=== PATIENT | female | born 1965 | race Caucasian/White ===

== ENCOUNTER 2019-05-29 16:54 | Emergency (ER) | payer OTHER ==
[~2019-05-29] VITALS: Ht 167.6 cm; Wt 109.6 kg
[~2019-05-29 16:54] MED LIST: BEN25 PO; DOXY100T20 PO; PRED20TA PO
[2019-05-29 17:08] VITALS: BP 142/84; PULSE 91; RESP 18; Ht 167.6 cm; Wt 109.6 kg
--- NOTE | 2019-05-29 18:17 | ERD ---
ER Documentation Chief Complaint Chief Complaint itchy blisters on right hand x5 days HPI 53-year-old female presenting to the emergency department complaining of rash to her bilateral hands spreading up the bilateral upper extremities for the past 5 days after working with laundry detergent and bleach. Associated symptoms include pruritus. Symptoms are moderate and constant. She tried baking soda and apple cider vinegar for her symptoms without relief. She denies fevers, chills, or other symptoms currently. ROS All systems reviewed and are negative except as per history of present illness. Medications Home Meds Active Scripts Diphenhydramine Hcl* (Benadryl*) 25 Mg Cap, 25 MG PO Q6 PRN for ITCHING/RASH, #30 TAB Prov:NAZARIO ASENCIO PA-C 05/29/19 Prednisone* (Prednisone*) 20 Mg Tab, 40 MG PO DAILY for 4 Days, TAB Prov:NAZARIO ASENCIO PA-C 05/29/19 Doxycycline Hyclate* (Doxycycline Hyclate*) 100 Mg Tablet.dr, 100 MG PO BID for 10 Days, TAB Prov:NAZARIO ASENCIO PA-C 05/29/19 Allergies Allergies: Coded Allergies: No Known Allergy (Unverified , 05/29/19) PMhx/Soc Medical and Surgical Hx: pt denies Medical Hx, pt denies Surgical Hx Hx Alcohol Use: Yes (social) Hx Substance Use: No Hx Tobacco Use: No FmHx Family History: No diabetes Physical Exam Vitals Vital Signs Date Temp Pulse Resp B/P (MAP) Pulse Ox O2 O2 Flow FiO2 Time Delivery Rate 05/29/19 99.2 91 18 142/84 97 17:08 (103) Physical Exam Const: No acute distress Head: Atraumatic Eyes: Normal Conjunctiva ENT: Normal External Ears, Nose and Mouth. Posterior pharynx is clear. Airway is patent. Neck: Full range of motion. No meningismus. Resp: Clear to auscultation bilaterally Cardio: Regular rate and rhythm, no murmurs Skin: Macular papular rash with excoriations and flaking skin and multiple dry patches noted to the bilateral hands and upper extremities. Mild macular papular rash noted to the chest. Back: No midline or flank tenderness Ext: No cyanosis, or edema Neur: Awake and alert Psych: Normal Mood and Affect Procedures/MDM 53-year-old female presented to the emergency department with signs and symptoms most consistent with contact dermatitis with likely secondary bacterial cellulitis. Patient is nontoxic and well-appearing. She is afebrile and her vital signs are stable. She is appropriate for outpatient management with prescription for Benadryl, prednisone, doxycycline. Patient's dermatologic symptoms have stabilized while they have been evaluated in the department and are appropriate for outpatient work up. No evidence of Phil Vinay's syndrome, Kawasaki's, or sepsis. Departure Diagnosis: Primary Impression: Contact dermatitis Contact dermatitis type: irritant Contact dermatitis trigger: detergents Qualified Codes: L24.0 - Irritant contact dermatitis due to detergents Condition: Fair Patient Instructions: Contact Dermatitis Referrals: FAREED FLORES MD Additional Instructions: Call your primary care doctor TOMORROW for an appointment during the next 1-2 days.See the doctor sooner or return here if your condition worsens before your appointment time. SPECIALIST: YOU HAVE A MEDICAL CONDITION WHICH REQUIRES YOU TO SEE A SPECIALIST WITHIN THE NEXT 1-2 DAYS. PLEASE FOLLOW UP WITH YOUR PRIMARY PHYSICIAN FOR REFFERAL.IF YOU DO NOT HAVE A PRIMARY CARE PHYSICIAN AND/OR YOU CAN NOT AFFORD TO SEE A PHYSICIAN THE FOLLOWING RESOURCES HAVE BEEN SUPPLIED TO YOU. IT IS YOUR RESPONSIBILITY TO BE SEEN BY THE SPECIALIST: DERMATOLGOIST NAZARIO ASENCIO PA-C May 29, 2019 18:17
== END 2019-05-29 18:08 | disposition home or self-care (01) ==
LOC: FTE 16:54
DX: L24.0 Irritant contact dermatitis due to detergents (principal)
CPT/HCPCS: 99283